=== PATIENT | female | born 1965 | race Caucasian/White ===

== ENCOUNTER 2021-04-03 13:12 | Emergency (ER) | payer BC, SELFPAY ==
[2021-04-03 14:00] VITALS: BP 112/79; PULSE 87; RESP 18; TEMP 36.5; O2SAT 94; BMI 45.9
--- NOTE | 2021-04-03 14:32 | HMH.EDUTC ---
[facility] Disposition Condition on Discharge: Good <Lefty Guillen - Last Filed: 04/03/21 20:25> Time of Disposition: 15:05 <Nickie Cat - Last Filed: 04/03/21 22:15> Clinical Impression: Neck pain on left side Disposition: Home, Self-Care Instructions: DI for Musculoskeletal Pain Additional Instructions: follow up with your pcp Referrals: Lisa Siddiqui [Primary Care Provider] - Medical Decision Making - Lab Data Result diagrams: 04/03/21 15:52 04/03/21 15:52 <Lefty Guillen - Last Filed: 04/03/21 20:25> - Elvis Inquiry Pt receiving controlled substance: No Elvis was queried for this patient: No - Lab Data Result diagrams: 04/03/21 15:52 04/03/21 15:52 <EmoryFlorinda - Last Filed: 04/03/21 22:15> Vital Signs: 04/03/21 14:00 04/03/21 15:16 04/03/21 19:45 Temperature 97.7 F 98.2 F 98 F Temperature Source Oral Oral Oral Pulse Rate 74 Pulse Rate [Right Brachial] 87 86 Respiratory Rate 18 20 16 Blood Pressure 132/78 Blood Pressure [Right Arm] 112/79 133/95 H Blood Pressure Mean [Right Arm] 90 107 Blood Pressure Source [Right Arm] Automatic Cuff Automatic Cuff Blood Pressure Position Sitting Blood Pressure Position [Right Arm] Sitting Sitting 02 Sat by Pulse Oximetry 94 L 95 Oxygen Delivery Method Room Air Room Air Room Air - Lab Data Lab Results 04/03/21 14:34: Strep Scn Rapid Clinic Negative 04/03/21 15:52: WBC 6.9, RBC 5.41 H, Hgb 14.9, Hct 46.0, MCV 85.2, MCH 27.6, MCHC 32.5, RDW 15.2, Plt Count 319, MPV 7.7, Neut % (Auto) 46.9, Lymph % (Auto) 41.5, [place] % (Auto) 6.3, Eos % (Auto) 2.4, Baso % (Auto) 3.0 H, Neut # (Auto) 3.2, Lymph # (Auto) 2.9, [place] # (Auto) 0.4, Eos # (Auto) 0.2, Baso # (Auto) 0.2 04/03/21 15:52: Sodium 141, Potassium 4.1, Chloride 106, Carbon Dioxide 26, Anion Gap 13.1, BUN 14, Creatinine 0.80, Estimated Creat Clear 84, Estimated GFR 74, Est GFR ( Amer) 89, Glucose 108 H, Calcium 9.1, Total Bilirubin 1.4 H, AST 29, ALT 20, Alkaline Phosphatase 91, Total Protein 7.6, Albumin 4.4, Globulin 3.2, Albumin/Globulin Ratio 1.4, TSH 2.50 Orders (Tests/Meds): ED MEDICATIONS Discontinued Medications Generic Name Dose Route Start Last Admin Trade Name Freq PRN Reason Stop Dose Admin Iopamidol 75 ml 04/03/21 16:39 04/03/21 16:39 Iopamidol-370 (76%);100ml Bottle IV 04/03/21 16:40 75 ml ONCE ONE Administration Sodium Chloride 10 ml 04/03/21 16:39 04/03/21 16:39 Sodium Chloride 0.9% 10ml Syr (Rad Only) IV 04/03/21 16:40 10 ml ONCE ONE Administration ORDERS Category Date Time Status Strep Screen Confirmation Stat Micro 04/03/21 14:34 Received Medical Decision Narrative: Patient reports history of tumors in head and feeling of heaviness in left arm yesterday with discomfort in left side of neck and recommended that patient be transferred to the ED for further work up and evaluation patient agreed Called ED spoke with Jacinta and patient was moved to room 7 (Nickie Cat) [facility] HPI <Lefty Guillen - Last Filed: 04/03/21 20:25> - General Mode of Arrival: Ambulatory Source of Information: Patient Limitations: No Limitations Description of Symptoms (Recalled from Triage Doc. by RN): PATIENT C/O PAIN TO LEFT SIDE OF NECK THAT RADIATES DOWN TO COLLAR BONE SINCE WEDNESDAY. NO KNOWN INJURY. SHE STATES PAIN IS ALWAYS THERE BUT WORSENS WITH CERTAIN MOVEMENT. SHE ALSO C/O RASH TO BILATERAL ARMS X 1 MONTH HEENT Symptoms (Recalled from RN notes): No Resp Symptoms (Recalled from RN notes): No Skin Symptoms (Recalled from RN notes): Yes MS Symptoms (Recalled from RN notes): No Functional Status (Recalled from RN notes): WNL - History of Present Illness Provider Complaint: Patient states that she has been feeling like she is having swelling deep inside her neck on the left side that feels like it radiates down to her collar bone area but does not feel like a pulled muscle State that it looks swollen and is tender when
[2021-04-03 14:38] LABS: UTC Strep Screen (Rapid) Negative (Negative)
--- NOTE | 2021-04-03 14:57 | PC.NURSE ---
PATIENT SENT TO ER PER Jonh SMITH APRN FOR FURTHER EVALUATION. REPORT GIVEN TO Chilo SIBLEY RN BY Jonh SMITH APRN
--- NOTE | 2021-04-03 15:05 | XR_ITS ---
FINAL REPORT CLINICAL HISTORY: PAIN, left side of neck pain since Vikram with swelling, no known injury per patient. FINDINGS: NECK SOFT TISSUE Two views of the neck soft tissue were obtained. The airway is normal. There is no evidence of airway narrowing. No mass is identified. IMPRESSION: No acute process. Reviewed, Interpreted and Dictated by Kushal Colon III, MD Transcribed by Loli Cintron Authenticated by Kushal Colon III, MD on 04/03/2021 04:25:06 PM [facility]
[2021-04-03 15:16] VITALS: BP 133/95; PULSE 86; RESP 20; TEMP 36.8; O2SAT 95; BMI 46.3
--- NOTE | 2021-04-03 15:32 | CT_ITS ---
FINAL REPORT TECHNIQUE: Thin section axial CT images were obtained through the neck after intravenous contrast administration. Coronal and sagittal reformats were also obtained. This study was performed with techniques to keep radiation doses as low as reasonably achievable (ALARA). Individualized dose reduction techniques using automated exposure control or adjustment of mA and/or kV according to the patient''s size were employed. CLINICAL HISTORY: left supraclavicular mass FINDINGS: The nasopharynx, oropharynx, hypopharynx and larynx are unremarkable. There is no mass or adenopathy. The thyroid gland is unremarkable. There is mucosal thickening in the sphenoid sinuses. Postoperative changes are seen of the nasal cavity and sinuses. There is no acute osseous abnormality. A marker was placed at the lateral left lower neck. No mass or abnormal fluid collection is seen. Visualized lungs demonstrate moderate emphysematous change and mild pulmonary scarring. There are scattered, small bilateral neck lymph nodes. IMPRESSION: Scattered, small bilateral neck lymph nodes. No mass or abnormal fluid collection. Reviewed, Interpreted and Dictated by Kushal Colon III, MD Transcribed by Allyn Pablo Authenticated by Kushal Colon III, MD on 04/03/2021 05:01:49 PM [facility]
--- NOTE | 2021-04-03 16:01 | HMH.EDGENADL ---
ED Disposition Clinical Impression: Neck pain on left side Disposition: Home, Self-Care Condition on Discharge: Good Instructions: DI for Musculoskeletal Pain Additional Instructions: follow up with your pcp Referrals: Lisa Siddiqui [Primary Care Provider] - - Critical Care Critical Care Time: No Attestation: On 04/03/21, the high probability of a clinically significant, sudden or life threatening deterioration of the following system(s) required my full and direct attention, intervention and personal management. The time I documented below is in addition to time spent performing reported procedures but includes the following listed in this critical care notation. Medical Decision Making - Elvis Inquiry Pt receiving controlled substance: No Vital Signs: 04/03/21 14:00 04/03/21 15:16 Temperature 97.7 F 98.2 F Temperature Source Oral Oral Pulse Rate [Right Brachial] 87 86 Respiratory Rate 18 20 Blood Pressure [Right Arm] 112/79 133/95 H Blood Pressure Mean [Right Arm] 90 107 Blood Pressure Source [Right Arm] Automatic Cuff Automatic Cuff Blood Pressure Position [Right Arm] Sitting Sitting 02 Sat by Pulse Oximetry 94 L 95 Oxygen Delivery Method Room Air Room Air - Lab Data Lab Results 04/03/21 14:34: Strep Scn Rapid Clinic Negative 04/03/21 15:52: WBC 6.9, RBC 5.41 H, Hgb 14.9, Hct 46.0, MCV 85.2, MCH 27.6, MCHC 32.5, RDW 15.2, Plt Count 319, MPV 7.7, Neut % (Auto) 46.9, Lymph % (Auto) 41.5, [place] % (Auto) 6.3, Eos % (Auto) 2.4, Baso % (Auto) 3.0 H, Neut # (Auto) 3.2, Lymph # (Auto) 2.9, [place] # (Auto) 0.4, Eos # (Auto) 0.2, Baso # (Auto) 0.2 04/03/21 15:52: Sodium 141, Potassium 4.1, Chloride 106, Carbon Dioxide 26, Anion Gap 13.1, BUN 14, Creatinine 0.80, Estimated Creat Clear 84, Estimated GFR 74, Est GFR ( Amer) 89, Glucose 108 H, Calcium 9.1, Total Bilirubin 1.4 H, AST 29, ALT 20, Alkaline Phosphatase 91, Total Protein 7.6, Albumin 4.4, Globulin 3.2, Albumin/Globulin Ratio 1.4, TSH 2.50 Result diagrams: 04/03/21 15:52 04/03/21 15:52 Orders (Tests/Meds): ED MEDICATIONS Discontinued Medications Generic Name Dose Route Start Last Admin Trade Name Quynh PRN Reason Stop Dose Admin Iopamidol 75 ml 04/03/21 16:39 04/03/21 16:39 Iopamidol-370 (76%);100ml Bottle IV 04/03/21 16:40 75 ml ONCE ONE Administration Sodium Chloride 10 ml 04/03/21 16:39 04/03/21 16:39 Sodium Chloride 0.9% 10ml Syr (Rad Only) IV 04/03/21 16:40 10 ml ONCE ONE Administration ORDERS Category Date Time Status Strep Screen Confirmation Stat Micro 04/03/21 14:34 Received General Adult HPI - General Stated complaint: throat swollen and painful Time Seen by Provider: 04/03/21 14:34 Mode of Arrival: Ambulatory Source of Information: Patient Limitations: No Limitations Description of Symptoms (Recalled from ER Triage Doc. by RN): patient brought [facility]. C/O left sided neck pain since Wednesday. Denies injury. States that the pain feels very tender and radiates into her collarbone. Also c/o left arm feeling very heavy yesterday. 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 - History of Present Illness HPI narrative: left neck pain and swelling few days, no trauma or cause Onset (ago): day(s) Radiation: non-radiation Severity: moderate Quality: constant Consistency: constant Relieving factors: none Exacerbating factors: none Associated symptoms: denies other symptoms - Related Data Home Medications Medication Instructions Recorded Confirmed Escitalopram Oxalate [Lexapro] 20 mg PO DAILY 04/03/21 04/03/21 Levothyroxine Sodium 75 mcg PO DAILY 04/03/21 04/03/21 [Levothyroxine 75mcg (0.075mg) Tab] Pravastatin Sodium [Pravachol 20mg 20 mg PO HS 04/03/21 04/03/21 Tablet] Allergies Allergy/AdvReac Type Severity Reaction Status Date / Time Penicillins Allergy Verified 04/03/21 14:28 Sulfa (Sulfonamide Allergy
[2021-04-03 16:11] LABS: Basophils # 0.2 K/mm3 (0-0.2); Eosinophils # 0.2 K/mm3 (0.0-0.4); Eosinophils % 2.4 % (0.1-12.0); Hemoglobin 14.9 g/dL (12.2-16.2); Lymphocytes # 2.9 K/mm3 (0.7-4.5); Lymphocytes % 41.5 % (10-50); Mean Corpuscular HGB Conc 32.5 g/dL (31.8-35.4); Mean Corpuscular Hemoglobin 27.6 pg (27.0-31.2); Mean Corpuscular Volume 85.2 fl (81-99); Mean Platelet Volume 7.7 fl (7.4-10.4); Monocytes # 0.4 K/mm3 (0.1-1.0); Monocytes % 6.3 % (1.7-9.3); Neutrophils # 3.2 K/mm3 (1.8-7.8); Neutrophils % 46.9 % (37.0-80.0); Platelet Count 319 K/mm3 (142-424); Red Blood Count 5.41 M/mm3 (4.20-5.40); Red Cell Distribution Width 15.2 % (11.5-17.5); White Blood Count 6.9 K/mm3 (4.8-10.8)
[2021-04-03 16:15] LABS: Chloride 106 mmol/L (98-107); Sodium 141 mmol/L (136-145)
[2021-04-03 16:16] LABS: Potassium 4.1 mmoL/L (3.5-5.1)
[2021-04-03 16:18] LABS: Alanine Aminotransferase 20 U/L (12-78); Albumin Level 4.4 g/dl (3.5-5.0); Albumin/Globulin Ratio 1.4 (1.1-1.8); Alkaline Phosphatase 91 U/L (38-126); Anion Gap 13.1 mEq/L (5-15); Aspartate Amino Transferase 29 U/L (14-36); Bilirubin,Total 1.4 mg/dl (0.2-1.3); Blood Urea Nitrogen 14 mg/dl (7-17); Carbon Dioxide 26 mmol/L (22.0-30.0); Creatinine Clearance Estimated 84 mL/min (50-200); Estimated Glomerular Filt Rate 74 ml/min (>60); GFR (African American) 89 ML/MIN (>60); Globulin 3.2 g/dL (1.3-3.2); Total Protein,Serum 7.6 g/dl (6.3-8.2)
[2021-04-03 16:19] LABS: Calcium 9.1 mg/dl (8.4-10.2); Glucose 108 mg/dl (74-100)
[2021-04-03 19:45] VITALS: BP 132/78; PULSE 74; RESP 16; TEMP 36.6; O2SAT 98
== END 2021-04-03 19:49 | disposition home or self-care (01) ==
LOC: ER 13:47 → UTC 13:51 → ER 14:53 → UTC 14:54 → ER 14:54
PROVIDERS: Nurse Practitioner; Emergency Provider Emergency Medicine; PCP Family Medicine
DX: M54.2 Cervicalgia (principal); E03.9 Hypothyroidism, unspecified; Z88.0 Allergy status to penicillin; Z88.2 Allergy status to sulfonamides
CPT/HCPCS: 70360; 70491; 80053; 84443; 85025; 87880; 99282; Q9967